=== PATIENT | female | born 1965 | race Two or more races ===

== ENCOUNTER 2019-03-09 08:25 | Outpatient (CLI) | payer OTHER | END 2019-03-09 08:37 | disposition home or self-care (01) | LOC: MAMO-SONO 08:25 | DX: Z12.31 Encounter for screening mammogram for malignant neoplasm of breast (principal); N60.11 Diffuse cystic mastopathy of right breast; N60.12 Diffuse cystic mastopathy of left breast; R10.2 Pelvic and perineal pain ==

== ENCOUNTER 2019-04-04 11:27 | Outpatient (CLI) | payer OTHER | END 2019-04-04 11:33 | disposition home or self-care (01) | LOC: MAMO-SONO 11:27 | DX: R92.8 Other abnormal and inconclusive findings on diagnostic imaging of breast (principal) ==

== ENCOUNTER 2020-10-22 11:20 | Outpatient (CLI) | payer OTHER | END 2020-10-22 11:49 | disposition home or self-care (01) | LOC: MAMO-SONO 11:20 | PROVIDERS: ATTEND Obstetrics & Gynecology | DX: N60.11 Diffuse cystic mastopathy of right breast (principal); N60.12 Diffuse cystic mastopathy of left breast ==

== ENCOUNTER 2021-11-18 13:05 | Outpatient (CLI) | payer OTHER | END 2021-11-18 13:06 | disposition home or self-care (01) | LOC: MAMO-SONO 13:05 | PROVIDERS: ATTEND Obstetrics & Gynecology | DX: N60.11 Diffuse cystic mastopathy of right breast (principal); N60.12 Diffuse cystic mastopathy of left breast ==

== ENCOUNTER 2022-10-08 07:49 | Outpatient (CLI) | payer OTHER | END 2022-10-08 08:09 | disposition home or self-care (01) | LOC: TOM 07:49 | PROVIDERS: ATTEND Internal Medicine Gastroenterology | DX: K56.5 Intestinal adhesions [bands] with obstruction (postinfection) (principal); R19.8 Other specified symptoms and signs involving the digestive system and abdomen ==